=== PATIENT | male | born 1980 | race Caucasian/White ===

== ENCOUNTER 2019-09-20 10:35 | Emergency (ER) | payer BC, OTHER ==
[~2019-09-20] VITALS: Ht 182.9 cm; Wt 10.9 kg
[2019-09-20 10:35] VITALS: BP 118/62
[2019-09-20] MEDS ORDERED: CEPHALEXIN 500 MG CAP PO ONE (11:15)
[2019-09-20] MEDS ORDERED: ADACEL/BOOSTRIX VACCINE (DIPHTH/PERTUSS/ACELL/TETANUS)0.5ML SYR (90715) IM ONE (11:15)
[2019-09-20] MEDS ORDERED: KEFL500C17 PO (11:30)
== END 2019-09-20 11:36 | disposition home or self-care (01) ==
LOC: M ED 10:35
DX: S61.532A Puncture wound without foreign body of left wrist, initial encounter (principal); W26.8XXA Contact with other sharp object(s), not elsewhere classified, initial encounter; Y92.018 Other place in single-family (private) house as the place of occurrence of the external cause; J30.2 Other seasonal allergic rhinitis

== ENCOUNTER → 2019-11-11 | Outpatient (REF) | payer OTHER ==
[~2019-11-11] MED LIST: KEFL500C17 PO
[2019-11-11 12:24] LABS: INFLUENZA A AMPLIFICATION POSITIVE (NEGATIVE); INFLUENZA B AMPLIFICATION NEGATIVE (NEGATIVE)
== END ==
LOC: M LAB REF 11:17
PROVIDERS: ATTEND Physician Assistant Medical
DX: R50.9 Fever, unspecified (principal)

== ENCOUNTER → 2024-11-15 | Outpatient (REF) | payer OTHER | LOC: M SMT 13:24 | PROVIDERS: ATTEND Urology | DX: Z30.2 Encounter for sterilization (principal) ==

== ENCOUNTER → 2025-01-16 | Outpatient (REF) | payer OTHER ==
[2025-01-16 10:13] LABS: SEMEN APPEARANCE OPAQUE (OPAQUE); SEMEN VISCOSITY LIQUID (LIQUID); SEMEN VOLUME 4.4 ml (2.0-5.0); SEMEN pH 8.5 (7.0-8.0); WBC CONCENTRATION <=1 M/ml (<=1 M/ml)
== END ==
LOC: M SMT 10:02
PROVIDERS: ATTEND Urology
DX: Z30.2 Encounter for sterilization (principal)